=== PATIENT | male | born 1945 | race Hispanic/Latino ===

== ENCOUNTER 2020-06-01 09:28 | Inpatient (IN) | payer OTHER, MEDICARE ==
[~2020-06-01] VITALS: Ht 165.1 cm; Wt 58.2 kg
[2020-06-01 10:02] LABS: BASOPHILS % (AUTO) 0.2 % (0.0-5.0); EOSINOPHILS % (AUTO) 0.1 % (0.0-8.0); HEMATOCRIT 44.5 % (42-54); LYMPHOCYTES % (AUTO) 10.6 % (21.0-51.0); MEAN CORPUSCULAR HEMOGLOBIN 31.5 pg (27.0-33.0); MEAN CORPUSCULAR HGB CONC 33.3 g/dL (32.0-36.0); MEAN CORPUSCULAR VOLUME 94.7 fL (79-99); MONOCYTES % (AUTO) 8.6 % (3.0-13.0); NEUTROPHILS % (AUTO) 80.2 % (40.0-77.0); PLATELET COUNT (AUTO) 193 K/uL (130-400); RED CELL DISTRIBUTION WIDTH 13.2 % (11.0-15.5); WHITE BLOOD COUNT (AUTO) 15.4 K/uL (4.8-10.8)
[2020-06-01 10:12] LABS: ALBUMIN 3.9 g/dL (3.5-5.0); POTASSIUM 3.9 mmol/L (3.5-5.1); TOTAL PROTEIN, SERUM 7.8 g/dL (6.0-8.3)
[2020-06-01 10:20] LABS: APPEARANCE,URINE Clear (CLEAR); BILIRUBIN,URINE Negative (NEGATIVE); COLOR,URINE Dark Yellow (YELLOW); GLUCOSE, URINE (UA) TRACE mg/dL (NEGATIVE); KETONES,URINE Trace mg/dL (NEGATIVE); LEUKOCYTE ESTERASE ,URINE Negative (NEGATIVE); NITRATE,URINE Negative (NEGATIVE); OCCULT BLOOD,URINE Moderate (NEGATIVE); PROTEIN,URINE POS 2+ mg/dL (NEGATIVE)
[2020-06-01 10:23] LABS: PARTIAL THROMBOPLASTIN TIME 32.7 SEC (26.3-35.5); PROTHROMBIN TIME 10.8 SEC (9.6-11.6)
[2020-06-01 10:51] LABS: BACTERIA,URINE Rare /HPF (None Seen); MUCUS,URINE Moderate LPF (None Seen); SQUAMOUS EPITHELIAL CELL,UR 0-2 /HPF (0-2); WBC,URINE None Seen /HPF (0-1)
[2020-06-01] MEDS ORDERED: MORPHINE SULFATE 4 MG/1ML SYG ONE (11:49)
[2020-06-01] MEDS ORDERED: ONDANSETRON HCL 4 MG/2 ML VIAL ONE (11:49)
[2020-06-01] MEDS ORDERED: IOHEXOL-350 75 ML VIAL IV ONE (12:04)
[2020-06-01] MEDS ORDERED: ZOSYN 3.375GM+NS 50ML 50 ML IV ONE (14:03)
[2020-06-01] MEDS ORDERED: ACETAMINOPHEN 325 MG TAB PO PRN (14:45)
[2020-06-01] MEDS ORDERED: LOPERAMIDE HCL 2 MG CAP PO PRN (14:45)
[2020-06-01 16:25] VITALS: BP 149/80
[2020-06-01] MEDS: ZOSYN 3.375GM+NS 50ML 50 ML IV SCH ×2 (17:25→22:54)
[2020-06-01] MEDS: LACTULOSE 20 GM/30 ML UDCUP PO PRN (17:27)
[2020-06-01] MEDS: ACETAMINOPHEN-CODEINE 300/30MG TAB PO PRN (17:27)
--- NOTE | 2020-06-01 19:10 | NUR ---
PM Assessment Received pt awake lying in bed, routine assessment done, plan of care discuss verifying when MD will be coming to see him, calimed he was not seen in ED. I made him aware tomorrow I just don't know what time. Pt claimed came in the hospital this time as he has this abdominal pain to the mid right lateral side that pain comes & go & this time pain becomes more frequent & worst. At this time patient stated he is OK, discomfort is bearable as he was given some pain medication earlier. Pt made aware he will continue receiving Zosyn IV ABX for some infection as his WBC is slightly elevated. Pt made aware that we will apply a IVONE stocking on him for prevention of blood clot as he won't be moving around like at his house, agreed. Sheyla JACOBS requested for this issue.
[2020-06-01 19:55] VITALS: BP 124/74
[2020-06-01] MEDS: ENOXAPARIN SODIUM 40 MG/0.4 ML SYRINGE SQ SCH (20:43)
[2020-06-01] MEDS: MORPHINE SULFATE 2 MG/ML 1ML SYG IVP PRN (20:48)
[2020-06-02] VITALS (7 sets, daily range): BP systolic 113–149; BP diastolic 67–87
[2020-06-02 04:42] LABS: BASOPHILS % (AUTO) 0.1 % (0.0-5.0); EOSINOPHILS % (AUTO) 0.1 % (0.0-8.0); HEMATOCRIT 41.4 % (42-54); LYMPHOCYTES % (AUTO) 6.3 % (21.0-51.0); MEAN CORPUSCULAR HEMOGLOBIN 30.9 pg (27.0-33.0); MEAN CORPUSCULAR HGB CONC 32.4 g/dL (32.0-36.0); MEAN CORPUSCULAR VOLUME 95.4 fL (79-99); NEUTROPHILS % (AUTO) 85.1 % (40.0-77.0); PLATELET COUNT (AUTO) 184 K/uL (130-400); RED BLOOD CELL COUNT(AUTO) 4.34 MIL/uL (4.50-6.20); RED CELL DISTRIBUTION WIDTH 13.4 % (11.0-15.5); WHITE BLOOD COUNT (AUTO) 14.2 K/uL (4.8-10.8)
[2020-06-02 04:47] LABS: CREATININE 0.9 mg/dL (0.5-1.5); POTASSIUM 4.1 mmol/L (3.5-5.1)
[2020-06-02] MEDS: ZOSYN 3.375GM+NS 50ML 50 ML IV SCH ×3 (06:45→23:04)
[2020-06-02] MEDS: PANTOPRAZOLE SODIUM 40 MG TABLET.DR PO SCH (09:22)
[2020-06-02] MEDS: ENOXAPARIN SODIUM 40 MG/0.4 ML SYRINGE SQ SCH ×2 (09:23→20:51)
[2020-06-02] MEDS: ACETAMINOPHEN-CODEINE 300/30MG TAB PO PRN ×2 (10:05→16:24)
--- NOTE | 2020-06-02 16:36 | NUR ---
INITIAL SW spoke with patient. He states he lives alone. No home services or DME. Patient is independent with ADL's and drives. PCP is Dr. Madhu Monzon. Pharmacy is [facility] located on [facility] in [place]. DCP is home. Addendum: 06/02/20 at 1638 by JUAN BERMEO SS Amended: Links added.
--- NOTE | 2020-06-02 19:40 | NUR ---
PM Assessment Received pt sited on his bedside chair watching TV, routine assessment done, plan of care discuss made aware he is pending to be seen by a surgeon, Dr. Larkin. Pt verbalizes he wants to have a surgery to get over with this long issue of abdominal discomfort. Pt claimed no pain at this time, but felt his abdomen is swollen. Pt claimed he has last BM yesterday & it was normal.
[2020-06-02] MEDS: LACTULOSE 20 GM/30 ML UDCUP PO PRN (23:12)
[2020-06-03 03:43] VITALS: BP 118/71
[2020-06-03] MEDS: ZOSYN 3.375GM+NS 50ML 50 ML IV SCH ×3 (06:20→21:29)
[2020-06-03 08:00] VITALS: BP 143/84
[2020-06-03] MEDS: PANTOPRAZOLE SODIUM 40 MG TABLET.DR PO SCH (08:09)
[2020-06-03] MEDS: ENOXAPARIN SODIUM 40 MG/0.4 ML SYRINGE SQ SCH ×2 (08:09→21:30)
[2020-06-03] MEDS: PNEUMOCOCCAL VACCINE POLYVALENT 0.5 ML/VIAL [PPV] IM SCH ×2 (08:11→16:52)
--- NOTE | 2020-06-03 11:30 | NUR ---
DR. CRAIN HERE AND SPOKE WITH PT OF THE RESULTS OF THE CT SCAN DONE, PER PT. INFORMATION .DR CRAIN CAN FOLLOW WITH HIM A OUTPATIENT , IN HIS OFFICE, FOR CONT .CARE. REQUESTED THAT AFTER DISCHARGE , PT NEEDS TO SEE HIS PRIVATE DRJaya AND REQUEST MEDICAL RECORDS FROM [facility]. FOR CONT EVALUATION OF HIS CONDITIONS. WAS EXPLAIN TO PT. AND UNDERSTOOD DIRECTIONS . .
[2020-06-03 11:39] VITALS: BP 141/88
--- NOTE | 2020-06-03 14:10 | NUR ---
CALLED DAE DE LA ROSA . [facility] AND SPOKE WITH HER . REGARDING PT . WANTING TO GO HOME AFTER DR VALADEZ VISITED STATED THAT WHY IS HE STILL HERE IF HE IS NOT GETTING SURGERY DONE PER RESPOND . DAE DE LA ROSA [facility] STATED THAT SHE SPOKE WITH DR VALADEZ AND WILL DISCUSS PLAN OF CARE WITH DR PRIETO AND OTHER OPTION WILL BE DISCUSS. . RESPOND DISCUSS WITH PT. AND AGREE FOR ANTIBOTICS AND WILL WAIT . FOR CARE. OPTIONS
[2020-06-03 16:00] VITALS: BP 137/91
[2020-06-03 20:42] VITALS: BP 128/64
[2020-06-04] VITALS: BP 147/82
[2020-06-04 04:00] VITALS: BP 140/80
[2020-06-04] MEDS: ZOSYN 3.375GM+NS 50ML 50 ML IV SCH ×3 (05:58→20:52)
[2020-06-04 07:17] LABS: INR 0.96 (0.85-1.15); PARTIAL THROMBOPLASTIN TIME 36.4 SEC (26.3-35.5); PROTHROMBIN TIME 10.4 SEC (9.6-11.6)
[2020-06-04 08:08] VITALS: BP 140/85
[2020-06-04] MEDS: ENOXAPARIN SODIUM 40 MG/0.4 ML SYRINGE SQ SCH ×2 (08:11→20:52)
--- NOTE | 2020-06-04 08:11 | NUR ---
PT ON LOVENOX SQ WILL NOT GIVE DOSE TODAY PENDING A CT GUIDED DRAINAGE TODAY , I.R. PROCEDURE,
[2020-06-04] MEDS: PANTOPRAZOLE SODIUM 40 MG TABLET.DR PO SCH (08:19)
[2020-06-04] MEDS: MORPHINE SULFATE 2 MG/ML 1ML SYG IVP PRN (11:01)
--- NOTE | 2020-06-04 11:48 | NUR ---
RE: CT ABDOMINAL CYST DRAINAGE DR Cielo IBRAHIM NOTIFIED AND REVIEWED IMAGES. HE STATES "IMAGES HAVE THER APPEARANCE OF A MASS IN APPENDIX AND REQUIRES SURGICAL INTERVENTION." RECOMMENDS SURGICAL CONSULT. Sophia MASSEY RN NOTIFIED OF PROCEDURE OUTCOME. CT DRAINAGE ORDER CANCELED
--- NOTE | 2020-06-04 11:50 | NUR ---
ODALYS Monson HERE AND UPDATE OF PT.CANCELATION OF THE CT GUIDED AND NOTES FROM THE RADIOLOGIST RESPOND RESUME DIET . ASK PT TO AMBULATE MUCH HE CAN . GIVE PAIN MEDICATION ORD AND LASTULOSE FOR HIS CONSTIPATION TOFOLLOW . EXPLAIN TO PT OF PLAN OF CARE. CALL LIGHT IN REACH..
[2020-06-04 12:22] VITALS: BP 133/95
[2020-06-04] MEDS: TRAMADOL HCL 50 MG TABLET PO SCH ×3 (12:45→23:41)
--- NOTE | 2020-06-04 14:20 | NUR ---
ASK PT WHO HIS PRIVATE DRJaya WAS AND NEEDED INFORMATION OF HIS HISTORY CARE IN [facility]. . STATED THAT HIS PRIVATE DRJaya IN [place] .DR. Cielo GEE HAD THE INFORMATION . ASK WILL FOLLOWUP STATUS,
[2020-06-04] MEDS: LACTULOSE 20 GM/30 ML UDCUP PO PRN (14:27)
--- NOTE | 2020-06-04 15:00 | NUR ---
DR. CRAIN HERE AND UPDATE PT. CT SCAN RADIOLOGIST . RECOMMANDATION . CT GUIDED WAS CANCEL . DUE TO SURGEON . NEEDED FOR PT CARE. NO CHANGES .
[2020-06-04] MEDS: ACETAMINOPHEN-CODEINE 300/30MG TAB PO PRN (15:16)
[2020-06-04] MEDS: ONDANSETRON HCL 4 MG/2 ML VIAL IVP PRN (15:31)
[2020-06-04 16:00] VITALS: BP 162/95
[2020-06-04 19:00] VITALS: BP 152/72
[2020-06-05] VITALS (7 sets, daily range): BP systolic 145–168; BP diastolic 91–108
[2020-06-05] MEDS: ZOSYN 3.375GM+NS 50ML 50 ML IV SCH ×3 (06:40→20:38)
[2020-06-05] MEDS: TRAMADOL HCL 50 MG TABLET PO SCH ×4 (06:42→23:52)
[2020-06-05] MEDS: LACTULOSE 20 GM/30 ML UDCUP PO PRN (06:43)
[2020-06-05] MEDS: PANTOPRAZOLE SODIUM 40 MG TABLET.DR PO SCH (08:27)
[2020-06-05] MEDS: ENOXAPARIN SODIUM 40 MG/0.4 ML SYRINGE SQ SCH ×2 (08:28→20:36)
[2020-06-05] MEDS ORDERED: MAGNESIUM CITRATE 296 ML SOLUTION PO SCH (11:15)
[2020-06-05] MEDS: ONDANSETRON HCL 4 MG/2 ML VIAL IVP PRN (14:59)
--- NOTE | 2020-06-05 19:18 | NUR ---
FLEETS ENEMA GIVEN
[2020-06-05] MEDS: ACETAMINOPHEN-CODEINE 300/30MG TAB PO PRN (20:35)
[2020-06-05] MEDS: HYDRALAZINE HCL 20 MG/ML VIAL IV PRN (20:35)
[2020-06-06] MEDS: MORPHINE SULFATE 2 MG/ML 1ML SYG IVP PRN (02:29)
[2020-06-06 04:10] VITALS: BP 129/95
--- NOTE | 2020-06-06 04:26 | NUR ---
ROUNDS PATIENT AWAKE AND ALERT. VOICES ALL NEEDS. PATIENT BEING MEDICATED AROUND THE CLOCK FOR ABD AND LATERAL PAIN. MEDICATED PER MARS PRN. RESP EVEN AND UNLABORED. NO SOB NOTED. O2 ON AT 2LPM. VITALS STABLE. AFEBRILE. VOIDING WITHOUT DIFFICULTY. REPOSITIONED FOR COMFORT. HOB ELEVATED. CALL LIGHT WITHIN REACH. WILL CONTINUE TO BE OBSERVED. Addendum: 06/06/20 at 9788 by DAVID TORRES RN RN Amended: Links added.
[2020-06-06] MEDS: ZOSYN 3.375GM+NS 50ML 50 ML IV SCH ×3 (05:18→22:24)
[2020-06-06] MEDS: TRAMADOL HCL 50 MG TABLET PO SCH ×3 (06:18→18:38)
[2020-06-06 08:00] VITALS: BP 130/90
[2020-06-06] MEDS: PANTOPRAZOLE SODIUM 40 MG TABLET.DR PO SCH (09:00)
[2020-06-06] MEDS: LACTULOSE 20 GM/30 ML UDCUP PO PRN (09:00)
[2020-06-06] MEDS: ENOXAPARIN SODIUM 40 MG/0.4 ML SYRINGE SQ SCH ×2 (09:01→20:53)
--- NOTE | 2020-06-06 09:54 | NUR ---
BENCHMARK PAGED PATIENT C/O RIGHT SIDED "CHEST PAIN". PAGED BENCHMARK TO REPORT SYMPTOMS.
[2020-06-06 11:00] VITALS: BP 154/90
[2020-06-06] MEDS: DEXTROSE 5%-LACTATED RINGERS 1,000 ML IV SCH (14:10)
[2020-06-06 15:45] VITALS: BP 138/89
[2020-06-06 19:52] VITALS: BP 146/93
[2020-06-06 23:57] VITALS: BP 143/93
[2020-06-07] MEDS: TRAMADOL HCL 50 MG TABLET PO SCH ×5 (00:18→23:06)
[2020-06-07] MEDS: DEXTROSE 5%-LACTATED RINGERS 1,000 ML IV SCH ×3 (00:18→20:14)
[2020-06-07 03:51] VITALS: BP 156/94
[2020-06-07] MEDS: ZOSYN 3.375GM+NS 50ML 50 ML IV SCH ×3 (06:40→23:05)
[2020-06-07 06:41] LABS: HEMATOCRIT 40.2 % (42-54); MEAN CORPUSCULAR HGB CONC 33.6 g/dL (32.0-36.0); MEAN CORPUSCULAR VOLUME 92.2 fL (79-99); RED BLOOD CELL COUNT(AUTO) 4.36 MIL/uL (4.50-6.20); RED CELL DISTRIBUTION WIDTH 13.2 % (11.0-15.5); WHITE BLOOD COUNT (AUTO) 12.5 K/uL (4.8-10.8)
[2020-06-07 06:53] LABS: CREATININE 0.9 mg/dL (0.5-1.5)
[2020-06-07 08:02] VITALS: BP 158/97
[2020-06-07] MEDS: PANTOPRAZOLE SODIUM 40 MG TABLET.DR PO SCH (09:44)
[2020-06-07] MEDS: ENOXAPARIN SODIUM 40 MG/0.4 ML SYRINGE SQ SCH ×2 (09:45→20:07)
[2020-06-07 11:10] VITALS: BP 141/96
[2020-06-07 16:40] VITALS: BP 160/93
[2020-06-07] MEDS ORDERED: LIDOCAINE HCL-MPF 1% 2ML VIAL IV PRN (18:15)
[2020-06-07] MEDS ORDERED: POTASSIUM CHLORIDE 20MEQ/100ML 100 ML IV PRN ×2 (18:15)
[2020-06-07] MEDS: METOCLOPRAMIDE 10 MG/2 ML VIAL IVP SCH (18:47)
[2020-06-07 20:00] VITALS: BP 152/82
--- NOTE | 2020-06-07 20:08 | NUR ---
Lovenox held patient going to surgery tomorrow
[2020-06-07] MEDS: LIDOCAINE HCL-MPF 1% 2ML VIAL IV PRN (21:03)
[2020-06-07] MEDS: MORPHINE SULFATE 2 MG/ML 1ML SYG IVP PRN (21:18)
[2020-06-08] VITALS (25 sets, daily range): BP systolic 109–170; BP diastolic 64–100
[2020-06-08 04:20] LABS: BASOPHILS % (AUTO) 0.3 % (0.0-5.0); EOSINOPHILS % (AUTO) 1.4 % (0.0-8.0); HEMATOCRIT 39.9 % (42-54); LYMPHOCYTES % (AUTO) 7.2 % (21.0-51.0); MEAN CORPUSCULAR HEMOGLOBIN 30.8 pg (27.0-33.0); MEAN CORPUSCULAR HGB CONC 32.8 g/dL (32.0-36.0); MEAN CORPUSCULAR VOLUME 93.7 fL (79-99); MONOCYTES % (AUTO) 8.8 % (3.0-13.0); NEUTROPHILS % (AUTO) 81.7 % (40.0-77.0); PLATELET COUNT (AUTO) 286 K/uL (130-400); RED BLOOD CELL COUNT(AUTO) 4.26 MIL/uL (4.50-6.20); RED CELL DISTRIBUTION WIDTH 13.2 % (11.0-15.5); WHITE BLOOD COUNT (AUTO) 11.7 K/uL (4.8-10.8)
[2020-06-08 04:47] LABS: ALBUMIN 2.7 g/dL (3.5-5.0); BILIRUBIN,TOTAL 0.6 mg/dL (0.2-1.0); CREATININE 0.9 mg/dL (0.5-1.5); POTASSIUM 3.1 mmol/L (3.5-5.1); TOTAL PROTEIN, SERUM 6.7 g/dL (6.0-8.3)
[2020-06-08] MEDS: HYDRALAZINE HCL 20 MG/ML VIAL IV PRN (05:04)
[2020-06-08] MEDS: ZOSYN 3.375GM+NS 50ML 50 ML IV SCH ×3 (05:07→21:47)
[2020-06-08] MEDS: TRAMADOL HCL 50 MG TABLET PO SCH ×4 (05:07→18:47)
[2020-06-08] MEDS: DEXTROSE 5%-LACTATED RINGERS 1,000 ML IV SCH ×2 (05:12→18:46)
[2020-06-08] MEDS: METOCLOPRAMIDE 10 MG/2 ML VIAL IVP SCH ×3 (06:46→18:46)
[2020-06-08] MEDS: MORPHINE SULFATE 2 MG/ML 1ML SYG IVP PRN (07:31)
[2020-06-08] MEDS: LIDOCAINE HCL-MPF 1% 2ML VIAL IJ PRN ×2 (07:31→18:49)
[2020-06-08] MEDS: POTASSIUM CHLORIDE 20MEQ/100ML 100 ML IV PRN ×2 (07:31→18:49)
[2020-06-08] MEDS: ENOXAPARIN SODIUM 40 MG/0.4 ML SYRINGE SQ SCH ×2 (09:00→21:46)
[2020-06-08] MEDS: PANTOPRAZOLE SODIUM 40 MG TABLET.DR PO SCH (09:00)
[2020-06-08] MEDS ORDERED: LIDOCAINE PF 2% 5ML ABBOJECT ONE (12:34)
[2020-06-08] MEDS ORDERED: MIDAZOLAM HCL 1 MG/ML 2ML VIAL ONE (12:35)
[2020-06-08] MEDS ORDERED: ONDANSETRON HCL 4 MG/2 ML VIAL ONE (12:35)
[2020-06-08] MEDS ORDERED: PROPOFOL 10 MG/ML 20ML VIAL IV ONE (12:35)
[2020-06-08] MEDS ORDERED: FENTANYL CITRATE PF 50 MCG/1 ML 2ML VIAL ONE (12:35)
[2020-06-08] MEDS ORDERED: DEXAMETHASONE SOD PHOSPHATE 10MG/ML 1ML VIAL ONE (12:35)
[2020-06-08] MEDS ORDERED: ROCURONIUM 10MG/1ML SYR 10 MG/ML ML ONE (12:35)
[2020-06-08 13:37] LABS: ABG BASE EXCESS 0.7 mmol/L (-2.0-3.0); ABG HCO3 25.3 mmol/L (21.0-28.0); ABG OXYGEN SATURATION 97.9 % (95.0-99.0); ABG PCO2 41 mmHg (35-48)
[2020-06-08] MEDS ORDERED: NEOSTIGMINE 5MG/5ML SYR IV ONE (13:42)
[2020-06-08] MEDS ORDERED: GLYCOPYRROLATE 1 MG/5 ML SYRINGE ONE (13:42)
[2020-06-08] MEDS ORDERED: NITROGLYCERIN 50 MG/D5% WATER 0 BOT ONE (14:08)
[2020-06-08] MEDS ORDERED: MEPERIDINE-PF 25 MG/ML SYG ONE ×2 (14:15→14:46)
[2020-06-08] MEDS ORDERED: MORPHINE SULFATE 4 MG/1ML SYG ONE ×2 (14:25→19:05)
--- NOTE | 2020-06-08 15:40 | NUR ---
PT RECEIVED POST EXP LAP. VITALS STABLE. PT IN SOME PAIN, PAIN MEDS ADMINISTERED PRIOR TO COMING BACK. NOTED NG TUBE TO RIGHT NARE ON LOW INT SUCTION, BROWN DRAINAGE NOTED. PT TOLERATING WELL. ABD DRESSING CLEAN AND DRY. WILL CONTINUE TO MONITOR.
[2020-06-08] MEDS ORDERED: KETOROLAC TROMETHAMINE 30MG/ML IV PRN ×2 (19:15→21:45)
[2020-06-08] MEDS: FAMOTIDINE/PF 20 MG/2 ML VIAL IV SCH (21:47)
[2020-06-09 00:07] VITALS: BP 136/85
[2020-06-09] MEDS: DEXTROSE 5%-LACTATED RINGERS 1,000 ML IV SCH ×3 (01:45→21:45)
[2020-06-09] MEDS: KETOROLAC TROMETHAMINE 30MG/ML IV SCH ×4 (01:53→21:20)
[2020-06-09 03:56] VITALS: BP 113/70
[2020-06-09 04:29] LABS: BASOPHILS % (AUTO) 0.3 % (0.0-5.0); EOSINOPHILS % (AUTO) 0.3 % (0.0-8.0); HEMATOCRIT 37.6 % (42-54); LYMPHOCYTES % (AUTO) 5.9 % (21.0-51.0); MEAN CORPUSCULAR HEMOGLOBIN 30.6 pg (27.0-33.0); MEAN CORPUSCULAR HGB CONC 32.7 g/dL (32.0-36.0); MEAN CORPUSCULAR VOLUME 93.5 fL (79-99); MONOCYTES % (AUTO) 6.5 % (3.0-13.0); NEUTROPHILS % (AUTO) 86.6 % (40.0-77.0); PLATELET COUNT (AUTO) 297 K/uL (130-400); RED BLOOD CELL COUNT(AUTO) 4.02 MIL/uL (4.50-6.20); RED CELL DISTRIBUTION WIDTH 13.4 % (11.0-15.5); WHITE BLOOD COUNT (AUTO) 11.5 K/uL (4.8-10.8)
[2020-06-09 04:40] LABS: ABG BASE EXCESS 0.9 mmol/L (-2.0-3.0); ABG HCO3 24.8 mmol/L (21.0-28.0); ABG OXYGEN SATURATION 93.5 % (95.0-99.0); ABG PCO2 37 mmHg (35-48)
[2020-06-09] MEDS: METOCLOPRAMIDE 10 MG/2 ML VIAL IVP SCH ×3 (05:52→16:20)
[2020-06-09] MEDS: ZOSYN 3.375GM+NS 50ML 50 ML IV SCH ×3 (05:52→23:57)
[2020-06-09 06:26] LABS: ALBUMIN 1.8 g/dL (3.5-5.0); BILIRUBIN,TOTAL 0.6 mg/dL (0.2-1.0); CREATININE 0.9 mg/dL (0.5-1.5); MAGNESIUM 2.7 mg/dL (1.80-2.40); PHOSPHORUS 2.4 mg/dL (2.5-4.9)
[2020-06-09 08:21] VITALS: BP 136/72
[2020-06-09] MEDS: PANTOPRAZOLE 40 MG/VIAL IVP SCH (09:28)
[2020-06-09] MEDS: FAMOTIDINE/PF 20 MG/2 ML VIAL IV SCH ×2 (09:28→21:20)
[2020-06-09] MEDS: ENOXAPARIN SODIUM 40 MG/0.4 ML SYRINGE SQ SCH ×2 (09:30→21:28)
[2020-06-09 11:41] VITALS: BP 147/68
[2020-06-09] MEDS ORDERED: POTASSIUM PHOS 15 mMOL+NS250ML 250 ML IV PRN (13:00)
[2020-06-09 16:36] VITALS: BP 137/74
[2020-06-09 20:00] VITALS: BP 150/70
[2020-06-09] MEDS ORDERED: KETOROLAC TROMETHAMINE 30MG/ML ONE (21:13)
[2020-06-10] VITALS (7 sets, daily range): BP systolic 132–169; BP diastolic 76–88
[2020-06-10] MEDS: KETOROLAC TROMETHAMINE 30MG/ML IV SCH ×5 (03:47→23:03)
[2020-06-10 05:24] LABS: HEMATOCRIT 33.4 % (42-54); MEAN CORPUSCULAR HEMOGLOBIN 30.5 pg (27.0-33.0); MEAN CORPUSCULAR HGB CONC 32.3 g/dL (32.0-36.0); MEAN CORPUSCULAR VOLUME 94.4 fL (79-99); RED BLOOD CELL COUNT(AUTO) 3.54 MIL/uL (4.50-6.20); RED CELL DISTRIBUTION WIDTH 13.6 % (11.0-15.5); WHITE BLOOD COUNT (AUTO) 5.7 K/uL (4.8-10.8)
[2020-06-10] MEDS: ZOSYN 3.375GM+NS 50ML 50 ML IV SCH ×3 (05:37→22:52)
[2020-06-10] MEDS: METOCLOPRAMIDE 10 MG/2 ML VIAL IVP SCH ×3 (05:37→17:41)
[2020-06-10 06:00] LABS: CREATININE 0.8 mg/dL (0.5-1.5); MAGNESIUM 2.4 mg/dL (1.80-2.40); PHOSPHORUS 1.9 mg/dL (2.5-4.9); POTASSIUM 3.5 mmol/L (3.5-5.1)
[2020-06-10] MEDS: FAMOTIDINE/PF 20 MG/2 ML VIAL IV SCH ×2 (08:51→21:28)
[2020-06-10] MEDS: ENOXAPARIN SODIUM 40 MG/0.4 ML SYRINGE SQ SCH ×2 (08:52→21:28)
[2020-06-10] MEDS: PANTOPRAZOLE 40 MG/VIAL IVP SCH (10:14)
[2020-06-10] MEDS: MORPHINE SULFATE 4 MG/1ML SYG IV PRN ×2 (10:15→18:14)
--- NOTE | 2020-06-10 10:20 | NUR ---
FEVER pt in chair ,states he feels warm ,checked temp 101.7 oral HR = 119 ST medicated with Tylenol 650mg PO NGT Clamped while in chair
--- NOTE | 2020-06-10 10:35 | NUR ---
Dr Larkin here aware of temp 101.7 obtain urine culture
[2020-06-10] MEDS: DEXTROSE 5%-LACTATED RINGERS 1,000 ML IV SCH ×2 (18:00→18:06)
--- NOTE | 2020-06-10 19:00 | NUR ---
FAMILY MEMBER spoke with daughter on the phone ,explained plan of care for pt voices understanding
--- NOTE | 2020-06-10 19:10 | NUR ---
ARCOS CATH DCd arcos cath sent UA with culture to lab
[2020-06-10] MEDS: LIDOCAINE HCL-MPF 1% 2ML VIAL IJ PRN (21:28)
[2020-06-10] MEDS: POTASSIUM CHLORIDE 20MEQ/100ML 100 ML IV PRN (21:29)
[2020-06-10] MEDS ORDERED: KETOROLAC TROMETHAMINE 30MG/ML ONE (23:00)
--- NOTE | 2020-06-10 23:46 | NUR ---
VOID Pt sitting up on a cardiac chair this time,states he already voided tonight post arcos cath removed.
--- NOTE | 2020-06-11 01:00 | NUR ---
ACTIVITY Pt was sitting up on chair since 2099,wants to go back to bed.NGT to low intermitent wall suction,draining greenish output.ABd dressing dry and intact,abd binder in place.Pt voids per urinal.
[2020-06-11 03:33] VITALS: BP 166/82
[2020-06-11] MEDS: DEXTROSE 5%-LACTATED RINGERS 1,000 ML IV SCH ×2 (03:50→13:45)
[2020-06-11] MEDS: HYDRALAZINE HCL 20 MG/ML VIAL IV PRN (03:51)
--- NOTE | 2020-06-11 03:51 | NUR ---
HYDRALAZINE Hydralazine given for bp 166/82.
--- NOTE | 2020-06-11 04:25 | NUR ---
MED EFFECT Bp rechecked 138/66.
[2020-06-11 04:26] VITALS: BP 138/66
[2020-06-11 04:33] LABS: BASOPHILS % (AUTO) 0.2 % (0.0-5.0); EOSINOPHILS % (AUTO) 0.2 % (0.0-8.0); HEMATOCRIT 36.5 % (42-54); LYMPHOCYTES % (AUTO) 8.5 % (21.0-51.0); MEAN CORPUSCULAR HEMOGLOBIN 30.6 pg (27.0-33.0); MEAN CORPUSCULAR HGB CONC 32.3 g/dL (32.0-36.0); MEAN CORPUSCULAR VOLUME 94.8 fL (79-99); MONOCYTES % (AUTO) 8.6 % (3.0-13.0); PLATELET COUNT (AUTO) 295 K/uL (130-400); RED BLOOD CELL COUNT(AUTO) 3.85 MIL/uL (4.50-6.20); RED CELL DISTRIBUTION WIDTH 13.6 % (11.0-15.5); WHITE BLOOD COUNT (AUTO) 8.5 K/uL (4.8-10.8)
[2020-06-11 04:46] LABS: CREATININE 0.8 mg/dL (0.5-1.5); MAGNESIUM 2.3 mg/dL (1.80-2.40); PHOSPHORUS 1.9 mg/dL (2.5-4.9); POTASSIUM 3.6 mmol/L (3.5-5.1)
[2020-06-11] MEDS: ZOSYN 3.375GM+NS 50ML 50 ML IV SCH (05:05)
[2020-06-11] MEDS: METOCLOPRAMIDE 10 MG/2 ML VIAL IVP SCH ×3 (05:06→16:09)
[2020-06-11 07:52] VITALS: BP 146/78
--- NOTE | 2020-06-11 08:13 | NUR ---
PAIN pt c/o pain upper back area rates a 5 pt sitting up in recliner requesting to ambulate
[2020-06-11] MEDS: FAMOTIDINE/PF 20 MG/2 ML VIAL IV SCH ×2 (08:51→20:17)
[2020-06-11] MEDS: ENOXAPARIN SODIUM 40 MG/0.4 ML SYRINGE SQ SCH ×2 (08:52→20:18)
[2020-06-11] MEDS: MORPHINE SULFATE 4 MG/1ML SYG IV PRN ×2 (08:53→22:45)
--- NOTE | 2020-06-11 09:06 | NUR ---
IV site right forearm swollen dcd and restarted left wrist 18 gauge x 1 attempt NGT DCd per Dr Martinez orders
[2020-06-11] MEDS: PANTOPRAZOLE SODIUM 40 MG TABLET.DR PO SCH (09:23)
[2020-06-11 11:15] VITALS: BP 132/79
[2020-06-11 16:00] VITALS: BP 142/83
[2020-06-11] MEDS: ACETAMINOPHEN-CODEINE 300/30MG TAB PO PRN (16:30)
--- NOTE | 2020-06-11 16:43 | NUR ---
Nutrition Note: RD screen d/t LOS x 10 days. Pt admitted with right abdominal mass s/p right hemicolectomy and severe PCM with electrolyte abnormalities. Pt NGT d/c and diet to advance to CLD this evening. Recommend: Advance diet to CLD. Add ensure TID with meals Add Audi 1 pckt at lunch and dinner w/ 8oz of water for wound healing Multivitamin Will monitor diet advancement. Addendum: 06/11/20 at [address] Amended: Links added.
[2020-06-11] MEDS: POTASSIUM CHLORIDE 20MEQ/100ML 100 ML IV PRN ×2 (17:00→18:19)
--- NOTE | 2020-06-11 18:30 | NUR ---
BANDADES X4 CHANGED JOSUÉ IN PLACE
[2020-06-11 20:00] VITALS: BP 161/87
--- NOTE | 2020-06-11 23:01 | NUR ---
COMFORT Pt had a bedbath,medicated with Morphine for c/o abdominal pain.
[2020-06-12] VITALS (9 sets, daily range): BP systolic 145–169; BP diastolic 68–94
[2020-06-12] MEDS: DEXTROSE 5%-LACTATED RINGERS 1,000 ML IV SCH ×3 (02:19→22:40)
[2020-06-12 05:35] LABS: BASOPHILS % (AUTO) 0.2 % (0.0-5.0); EOSINOPHILS % (AUTO) 0.2 % (0.0-8.0); HEMATOCRIT 34.6 % (42-54); LYMPHOCYTES % (AUTO) 5.9 % (21.0-51.0); MEAN CORPUSCULAR HEMOGLOBIN 30.4 pg (27.0-33.0); MEAN CORPUSCULAR HGB CONC 32.1 g/dL (32.0-36.0); MEAN CORPUSCULAR VOLUME 94.8 fL (79-99); MONOCYTES % (AUTO) 7.9 % (3.0-13.0); PLATELET COUNT (AUTO) 278 K/uL (130-400); RED BLOOD CELL COUNT(AUTO) 3.65 MIL/uL (4.50-6.20); RED CELL DISTRIBUTION WIDTH 13.6 % (11.0-15.5); WHITE BLOOD COUNT (AUTO) 12.6 K/uL (4.8-10.8)
[2020-06-12] MEDS: METOCLOPRAMIDE 10 MG/2 ML VIAL IVP SCH ×3 (05:40→17:49)
[2020-06-12] MEDS: MORPHINE SULFATE 4 MG/1ML SYG IV PRN ×2 (05:46→12:50)
[2020-06-12 05:48] LABS: ALBUMIN 1.7 g/dL (3.5-5.0); BILIRUBIN,TOTAL 0.6 mg/dL (0.2-1.0); CREATININE 0.7 mg/dL (0.5-1.5); POTASSIUM 3.5 mmol/L (3.5-5.1); TOTAL PROTEIN, SERUM 5.5 g/dL (6.0-8.3)
[2020-06-12] MEDS: POTASSIUM CHLORIDE 20MEQ/100ML 100 ML IV PRN (06:23)
[2020-06-12] MEDS: LIDOCAINE HCL-MPF 1% 2ML VIAL IJ PRN (06:24)
[2020-06-12] MEDS: PANTOPRAZOLE SODIUM 40 MG TABLET.DR PO SCH (06:36)
[2020-06-12] MEDS: FAMOTIDINE/PF 20 MG/2 ML VIAL IV SCH ×2 (10:30→22:37)
[2020-06-12] MEDS: ENOXAPARIN SODIUM 40 MG/0.4 ML SYRINGE SQ SCH ×2 (10:36→22:37)
--- NOTE | 2020-06-12 13:48 | NUR ---
RD UPDATE Pt with Clear Liquid diet order in place. WBC 12.6, Alb 1.7. Recommend to add Ensure Clear TID Recommend MVI Recommend 60mL ProMod QD RD to continue to monitor. Please notify as additional nutrition concerns arise. Thank you.
[2020-06-12] MEDS: HYDRALAZINE HCL 20 MG/ML VIAL IV PRN ×2 (14:50→23:00)
[2020-06-12] MEDS: ACETAMINOPHEN-CODEINE 300/30MG TAB PO PRN (17:50)
[2020-06-13] MEDS: ACETAMINOPHEN-CODEINE 300/30MG TAB PO PRN ×4 (00:08→23:59)
[2020-06-13 03:15] VITALS: BP 167/84
[2020-06-13 04:17] LABS: HEMATOCRIT 34.4 % (42-54); MEAN CORPUSCULAR HEMOGLOBIN 29.7 pg (27.0-33.0); MEAN CORPUSCULAR HGB CONC 31.7 g/dL (32.0-36.0); MEAN CORPUSCULAR VOLUME 93.7 fL (79-99); RED BLOOD CELL COUNT(AUTO) 3.67 MIL/uL (4.50-6.20); RED CELL DISTRIBUTION WIDTH 13.7 % (11.0-15.5); WHITE BLOOD COUNT (AUTO) 14.8 K/uL (4.8-10.8)
[2020-06-13 04:29] LABS: CREATININE 0.6 mg/dL (0.5-1.5); POTASSIUM 3.2 mmol/L (3.5-5.1)
[2020-06-13] MEDS: HYDRALAZINE HCL 20 MG/ML VIAL IV PRN ×3 (04:46→23:58)
[2020-06-13] MEDS: POTASSIUM CHLORIDE 20MEQ/100ML 100 ML IV PRN ×2 (06:12→15:59)
[2020-06-13] MEDS: DEXTROSE 5%-LACTATED RINGERS 1,000 ML IV SCH ×2 (06:12→19:51)
[2020-06-13] MEDS: METOCLOPRAMIDE 10 MG/2 ML VIAL IVP SCH ×3 (06:13→17:42)
[2020-06-13 08:00] VITALS: BP 138/70
[2020-06-13] MEDS: FAMOTIDINE/PF 20 MG/2 ML VIAL IV SCH ×2 (08:59→20:27)
[2020-06-13] MEDS: ENOXAPARIN SODIUM 40 MG/0.4 ML SYRINGE SQ SCH ×2 (09:01→20:28)
[2020-06-13 12:00] VITALS: BP 172/83
[2020-06-13] MEDS: LIDOCAINE HCL-MPF 1% 2ML VIAL IJ PRN (15:58)
[2020-06-13 16:00] VITALS: BP 159/77
[2020-06-13] MEDS: ONDANSETRON HCL 4 MG/2 ML VIAL IVP PRN ×2 (17:59→22:50)
[2020-06-13 19:10] VITALS: BP 154/86
[2020-06-13] MEDS: POTASSIUM CHLORIDE 10% ELIXIR 20 MEQ/15 ML UDCUP PO PRN (22:50)
[2020-06-13 23:16] VITALS: BP 169/87
[2020-06-14] MEDS: POTASSIUM CHLORIDE 10% ELIXIR 20 MEQ/15 ML UDCUP PO PRN ×3 (01:18→05:39)
[2020-06-14] MEDS: MORPHINE SULFATE 4 MG/1ML SYG IV PRN ×2 (03:16→10:43)
[2020-06-14] MEDS: DEXTROSE 5%-LACTATED RINGERS 1,000 ML IV SCH ×2 (03:16→12:56)
[2020-06-14 03:37] VITALS: BP 164/88
[2020-06-14 04:23] VITALS: BP 151/86
[2020-06-14 05:12] LABS: HEMATOCRIT 32.9 % (42-54); MEAN CORPUSCULAR HEMOGLOBIN 30.1 pg (27.0-33.0); MEAN CORPUSCULAR HGB CONC 32.2 g/dL (32.0-36.0); MEAN CORPUSCULAR VOLUME 93.5 fL (79-99); RED BLOOD CELL COUNT(AUTO) 3.52 MIL/uL (4.50-6.20); WHITE BLOOD COUNT (AUTO) 14.1 K/uL (4.8-10.8)
[2020-06-14 05:31] LABS: CREATININE 0.7 mg/dL (0.5-1.5); POTASSIUM 3.7 mmol/L (3.5-5.1)
[2020-06-14] MEDS: METOCLOPRAMIDE 10 MG/2 ML VIAL IVP SCH ×3 (05:39→16:55)
[2020-06-14 08:00] VITALS: BP 170/89
[2020-06-14] MEDS: FAMOTIDINE/PF 20 MG/2 ML VIAL IV SCH ×2 (08:03→21:40)
[2020-06-14] MEDS: HYDRALAZINE HCL 20 MG/ML VIAL IV PRN (08:04)
--- NOTE | 2020-06-14 08:21 | NUR ---
DARYL INGRAM SPOKE TO DARYL THAT PATIENT C/0 OF PAIN TO ABDOMINAL AREA AND RIGHT FLANK AREA 0-10 ( 6) ON PAIN SCALE. PER DARYL WILL ORDER A KUB.
--- NOTE | 2020-06-14 10:52 | NUR ---
ABDOMINAL PAIN PT C/O OF AMBDOMINAL PAIN AND PT TO RIGHT FLANK AREA. PT GIVEN MORPHINE 4MG AND ICE PACK, PAIN IS 6 OUT 10.
[2020-06-14 11:00] VITALS: BP_SYST 131; BP_SYST 161; BP_DIAS 73; BP_DIAS 86
[2020-06-14] MEDS: ENOXAPARIN SODIUM 40 MG/0.4 ML SYRINGE SQ SCH ×2 (11:47→21:41)
[2020-06-14 16:02] VITALS: BP 153/80
[2020-06-14] MEDS: ACETAMINOPHEN-CODEINE 300/30MG TAB PO PRN (18:06)
--- NOTE | 2020-06-14 19:30 | NUR ---
PM Assessment Received pt lying in bed with D5LR at 100cc/hr infusing well, routine assessment done, plan of care discuss,pt made aware that he is due for another KUB in AM, abdomen noted distended but per pt stated had a goon BM earlier today with (+) flatus. Pt's abdominal binder fix, incision with staple sutures dry & intact. Pt encourage to moved around,ambulate, agreed stated he will do it later as earlier today has not gotten out of bed at all. Pt reminded on clear liquid diet only for now which pt claimed has been tolerating it well. Pt also encourage to keep doing his IS while awake to prevent issues with his lungs, 5x at 750 only.
[2020-06-14 21:03] VITALS: BP 145/77
[2020-06-15] VITALS (8 sets, daily range): BP systolic 127–167; BP diastolic 68–87
[2020-06-15] MEDS: ACETAMINOPHEN-CODEINE 300/30MG TAB PO PRN ×3 (01:51→15:18)
[2020-06-15] MEDS: DEXTROSE 5%-LACTATED RINGERS 1,000 ML IV SCH ×3 (03:07→18:06)
[2020-06-15 03:55] LABS: BASOPHILS % (AUTO) 0.5 % (0.0-5.0); EOSINOPHILS % (AUTO) 0.1 % (0.0-8.0); HEMATOCRIT 29.4 % (42-54); LYMPHOCYTES % (AUTO) 3.7 % (21.0-51.0); MEAN CORPUSCULAR HEMOGLOBIN 30.1 pg (27.0-33.0); MEAN CORPUSCULAR HGB CONC 32.7 g/dL (32.0-36.0); MEAN CORPUSCULAR VOLUME 92.2 fL (79-99); MONOCYTES % (AUTO) 3.3 % (3.0-13.0); NEUTROPHILS % (AUTO) 91.9 % (40.0-77.0); PLATELET COUNT (AUTO) 247 K/uL (130-400); RED BLOOD CELL COUNT(AUTO) 3.19 MIL/uL (4.50-6.20); RED CELL DISTRIBUTION WIDTH 14.1 % (11.0-15.5); WHITE BLOOD COUNT (AUTO) 13.3 K/uL (4.8-10.8)
[2020-06-15 04:06] LABS: ALBUMIN 1.3 g/dL (3.5-5.0); BILIRUBIN,TOTAL 0.6 mg/dL (0.2-1.0); CREATININE 0.7 mg/dL (0.5-1.5); POTASSIUM 3.4 mmol/L (3.5-5.1)
[2020-06-15] MEDS: POTASSIUM CHLORIDE 20 MEQ ERTAB PO PRN (06:31)
[2020-06-15] MEDS: METOCLOPRAMIDE 10 MG/2 ML VIAL IVP SCH ×3 (06:32→16:19)
[2020-06-15] MEDS: FAMOTIDINE/PF 20 MG/2 ML VIAL IV SCH ×2 (08:25→19:45)
[2020-06-15] MEDS: POTASSIUM CHLORIDE 20MEQ/100ML 100 ML IV PRN (08:26)
[2020-06-15] MEDS: LIDOCAINE HCL-MPF 1% 2ML VIAL IJ PRN (08:26)
[2020-06-15] MEDS: ENOXAPARIN SODIUM 40 MG/0.4 ML SYRINGE SQ SCH ×2 (08:26→19:45)
[2020-06-15] MEDS ORDERED: METHYLNALTREXONE BROMIDE 12 MG/0.6 ML VIAL SQ SCH (16:00)
--- NOTE | 2020-06-15 16:29 | NUR ---
DARYL INGRAM SPOKE WITH DARYL INGRAM AND READ THE RESULT OF CT SCAN OF ABD/PLEVIS, ORDER IS TO KEEP PT NPO AND HE WILL COME AND LOOK AT HIM TOMORROW.
[2020-06-15] MEDS: HYDRALAZINE HCL 20 MG/ML VIAL IV PRN (20:24)
--- NOTE | 2020-06-15 21:24 | NUR ---
spoke with doctor jonathan. let him know ct scan results. he will see patient in the am
[2020-06-15] MEDS: KETOROLAC TROMETHAMINE 15MG/ML IM PRN (21:35)
[2020-06-16] VITALS (7 sets, daily range): BP systolic 141–168; BP diastolic 69–87
[2020-06-16] MEDS: KETOROLAC TROMETHAMINE 15MG/ML IM PRN (03:28)
[2020-06-16] MEDS: DEXTROSE 5%-LACTATED RINGERS 1,000 ML IV SCH ×2 (03:36→13:45)
[2020-06-16 03:56] LABS: BASOPHILS % (AUTO) 0.6 % (0.0-5.0); EOSINOPHILS % (AUTO) 0.2 % (0.0-8.0); HEMATOCRIT 30.5 % (42-54); LYMPHOCYTES % (AUTO) 3.1 % (21.0-51.0); MEAN CORPUSCULAR HEMOGLOBIN 29.8 pg (27.0-33.0); MEAN CORPUSCULAR HGB CONC 32.5 g/dL (32.0-36.0); MEAN CORPUSCULAR VOLUME 91.9 fL (79-99); MONOCYTES % (AUTO) 3.2 % (3.0-13.0); NEUTROPHILS % (AUTO) 92.3 % (40.0-77.0); PLATELET COUNT (AUTO) 214 K/uL (130-400); RED BLOOD CELL COUNT(AUTO) 3.32 MIL/uL (4.50-6.20); RED CELL DISTRIBUTION WIDTH 14.3 % (11.0-15.5); WHITE BLOOD COUNT (AUTO) 14.1 K/uL (4.8-10.8)
[2020-06-16 04:13] LABS: CREATININE 0.6 mg/dL (0.5-1.5); POTASSIUM 3.5 mmol/L (3.5-5.1)
[2020-06-16] MEDS: METOCLOPRAMIDE 10 MG/2 ML VIAL IVP SCH ×3 (05:02→16:53)
--- NOTE | 2020-06-16 08:00 | NUR ---
PT UP IN CHAIR, AND HAD A LARGE YELLOW STOOL. ABD INCISION REVIEW. TO CHECK INCISIONAL SITE, CLEANSE WITH THE SALINE ,AND ABD BINDER WILL BE CHANGE DUE TO DIRTY , OUTSIDE THE BINDER, AGREEABLE TO CARE. CALL LIGHT IN REACH.
[2020-06-16] MEDS: ENOXAPARIN SODIUM 40 MG/0.4 ML SYRINGE SQ SCH ×2 (08:38→20:37)
[2020-06-16] MEDS: FAMOTIDINE/PF 20 MG/2 ML VIAL IV SCH ×2 (08:38→20:37)
--- NOTE | 2020-06-16 11:30 | NUR ---
DR. CRAIN HERE, AND UPDATE OF PT. CARE, PT IS SITTING UP IN CHAIR , HAVING LARGE LOOSE YELLOW STOOLS . DR CRAIN PLEASE . CHANGE OF DIET TO A GI SOFT. RECOMMENDATION .
[2020-06-16] MEDS: KETOROLAC TROMETHAMINE 15MG/ML IV PRN ×2 (12:17→15:16)
[2020-06-16] MEDS ORDERED: METHYLNALTREXONE BROMIDE 12 MG/0.6 ML VIAL SQ SCH (14:30)
[2020-06-16] MEDS: POTASSIUM CHLORIDE 10% ELIXIR 20 MEQ/15 ML UDCUP PO PRN ×2 (20:46→23:23)
[2020-06-16] MEDS: TRAMADOL /APAP 37.5MG/325MG TAB PO PRN (21:22)
--- NOTE | 2020-06-16 21:22 | NUR ---
PAIN Pt requesting pain med,medicated with Tramadol.
--- NOTE | 2020-06-16 23:56 | NUR ---
ACTIVITY Pt sitting at the edge of the bed,encouraged to ambulate and do IS.Pt appears sad,denies pain this time.
[2020-06-17] MEDS: DEXTROSE 5%-LACTATED RINGERS 1,000 ML IV SCH
[2020-06-17] MEDS: KETOROLAC TROMETHAMINE 15MG/ML IV PRN ×3 (03:13→20:33)
[2020-06-17 04:00] VITALS: BP 170/90
[2020-06-17] MEDS: METOCLOPRAMIDE 10 MG/2 ML VIAL IVP SCH ×3 (04:55→16:26)
--- NOTE | 2020-06-17 04:56 | NUR ---
REGLAN Reglan not given,pt had 4 bowel movements.
--- NOTE | 2020-06-17 06:11 | NUR ---
SHOWER Pt showered,tolerated well.Staff report pt had 4 bowel movement thru the night.Pt c/o swelling to his scrotal area.Sundar feet and hands with edema.Ivf saline locked for now and will pass on report to am nurse.
[2020-06-17 07:24] LABS: HEMATOCRIT 32.2 % (42-54); MEAN CORPUSCULAR HEMOGLOBIN 30.3 pg (27.0-33.0); MEAN CORPUSCULAR HGB CONC 32.6 g/dL (32.0-36.0); MEAN CORPUSCULAR VOLUME 93.1 fL (79-99); RED BLOOD CELL COUNT(AUTO) 3.46 MIL/uL (4.50-6.20); WHITE BLOOD COUNT (AUTO) 15.7 K/uL (4.8-10.8)
[2020-06-17 07:45] VITALS: BP 175/88
[2020-06-17] MEDS: FAMOTIDINE/PF 20 MG/2 ML VIAL IV SCH ×2 (07:47→20:21)
[2020-06-17] MEDS: ENOXAPARIN SODIUM 40 MG/0.4 ML SYRINGE SQ SCH ×2 (07:49→20:21)
[2020-06-17 07:52] LABS: CREATININE 0.7 mg/dL (0.5-1.5); POTASSIUM 4.3 mmol/L (3.5-5.1)
--- NOTE | 2020-06-17 08:00 | NUR ---
ASSIT UP IN THE CHAIR, ASSESS HIS ABD INCISIONAL SITE CLEAN,, ACTIVE BOWEL SOUNDS. AND CALL LIGHT IN REACH.
--- NOTE | 2020-06-17 09:20 | NUR ---
TOLERATE DIET WITH NAUSEA , NO C/O OF ABD PAIN
[2020-06-17 11:00] VITALS: BP 108/60
[2020-06-17] MEDS: HYDRALAZINE HCL 20 MG/ML VIAL IV PRN (12:04)
[2020-06-17 16:00] VITALS: BP 123/65
--- NOTE | 2020-06-17 18:00 | NUR ---
RESTING IN BED , DENIES ANY DISCOMFORT . AND CALL LIGHT IN REACH..
[2020-06-17 20:00] VITALS: BP 153/71
--- NOTE | 2020-06-17 22:00 | NUR ---
SHOWERED Pt took a shower,jess well.Ambulates slowly with a walker.
[2020-06-18] VITALS: BP 144/69
[2020-06-18] MEDS: TRAMADOL /APAP 37.5MG/325MG TAB PO PRN ×2 (00:24→18:49)
[2020-06-18 04:00] VITALS: BP 146/69
[2020-06-18] MEDS: METOCLOPRAMIDE 10 MG/2 ML VIAL IVP SCH ×2 (05:25→12:05)
[2020-06-18 08:00] VITALS: BP 159/83
--- NOTE | 2020-06-18 08:00 | NUR ---
PT SITTING IN THE CHAIR, REVIEW PLAN OF CARE. DENIES ANY A BD PAIN. ASSESS INCISIONAL SITE, CLEAN , ABD BINDER ON. CALL LIGHT IN REACH ,, STATED THAT THE FOOD HE GET .IS VERY GOOD. ABD WITH ACTIVE BOWEL SOUNDS.
[2020-06-18] MEDS: FAMOTIDINE/PF 20 MG/2 ML VIAL IV SCH ×2 (08:20→19:17)
[2020-06-18] MEDS: ENOXAPARIN SODIUM 40 MG/0.4 ML SYRINGE SQ SCH ×2 (08:21→19:17)
[2020-06-18 12:00] VITALS: BP 161/77
--- NOTE | 2020-06-18 12:13 | NUR ---
CM Note: [facility] pending approval CM spoke to pt discussed MD recommendation for short term rehab, pt is agreeable, telephone consent obtained PARMINDER for [facility], witnessed by Glendy GUZMAN. Pt requested to have brother Hood updated. CM called Hood Torres updated w/POC, agreeable for short term placement, telephone consent obtained for [facility], witnessed by Glendy GUZMAN. Faxed order, clinicals, PT, PASRR to [facility], confirmation received. Spoke to Alice, will submit for auth, aware pending covid rapid ordered today and covid transfer form to be signed by MD/ELECTRIC TRACK SWITCH MAINTAINER, will send once available. Pt pending approval. Safe to transfer via [facility] transport van once ready to DC. Primary nurse aware. CM to cont to follow up.
[2020-06-18] MEDS: METRONIDAZOLE 500 MG TABLET PO SCH ×2 (14:11→19:17)
[2020-06-18] MEDS: LEVOFLOXACIN 500 MG TABLET PO SCH (14:11)
[2020-06-18 16:00] VITALS: BP 163/81
[2020-06-18 20:00] VITALS: BP 165/79
[2020-06-19 00:12] VITALS: BP 167/83
[2020-06-19] MEDS: HYDRALAZINE HCL 20 MG/ML VIAL IV PRN (03:19)
[2020-06-19] MEDS: TRAMADOL /APAP 37.5MG/325MG TAB PO PRN (03:19)
[2020-06-19] MEDS: METRONIDAZOLE 500 MG TABLET PO SCH ×2 (03:19→14:32)
[2020-06-19 04:12] VITALS: BP 137/67
[2020-06-19 04:42] LABS: BASOPHILS % (AUTO) 0.5 % (0.0-5.0); EOSINOPHILS % (AUTO) 0.1 % (0.0-8.0); HEMATOCRIT 28.5 % (42-54); LYMPHOCYTES % (AUTO) 6.2 % (21.0-51.0); MEAN CORPUSCULAR HEMOGLOBIN 30.3 pg (27.0-33.0); MEAN CORPUSCULAR HGB CONC 33.3 g/dL (32.0-36.0); MEAN CORPUSCULAR VOLUME 90.8 fL (79-99); MONOCYTES % (AUTO) 5.4 % (3.0-13.0); PLATELET COUNT (AUTO) 224 K/uL (130-400); RED BLOOD CELL COUNT(AUTO) 3.14 MIL/uL (4.50-6.20); RED CELL DISTRIBUTION WIDTH 14.1 % (11.0-15.5); WHITE BLOOD COUNT (AUTO) 10.9 K/uL (4.8-10.8)
[2020-06-19 05:00] LABS: CREATININE 0.5 mg/dL (0.5-1.5); MAGNESIUM 1.9 mg/dL (1.80-2.40)
[2020-06-19 05:03] LABS: POTASSIUM 2.7 mmol/L (3.5-5.1)
[2020-06-19] MEDS: LIDOCAINE HCL-MPF 1% 2ML VIAL IV PRN (05:26)
[2020-06-19] MEDS: POTASSIUM CHLORIDE 20MEQ/100ML 100 ML IV PRN ×2 (05:26→11:58)
[2020-06-19] MEDS: POTASSIUM CHLORIDE 20 MEQ ERTAB PO PRN (05:26)
[2020-06-19 09:48] VITALS: BP 154/77
[2020-06-19] MEDS: LEVOFLOXACIN 500 MG TABLET PO SCH (09:55)
[2020-06-19] MEDS: FAMOTIDINE/PF 20 MG/2 ML VIAL IV SCH (09:55)
[2020-06-19] MEDS: ENOXAPARIN SODIUM 40 MG/0.4 ML SYRINGE SQ SCH (09:56)
[2020-06-19] MEDS: POTASSIUM CHLORIDE 10% ELIXIR 20 MEQ/15 ML UDCUP PO PRN ×4 (10:28→11:57)
[2020-06-19] MEDS: KETOROLAC TROMETHAMINE 15MG/ML IV PRN ×2 (11:32→19:19)
[2020-06-19] MEDS: LIDOCAINE HCL-MPF 1% 2ML VIAL IJ PRN (11:59)
--- NOTE | 2020-06-19 12:04 | NUR ---
CM Note: [facility] pending approval CM spoke to Alice, received rapid neg covid result and transfer form. Pt pending approval at this time. Primary nurse aware. CM to cont to follow up.
[2020-06-19 12:21] VITALS: BP 145/77
[2020-06-19] MEDS ORDERED: SODIUM CHLORIDE 0.9% 500ML 500 ML IV ONE (13:23)
--- NOTE | 2020-06-19 16:07 | NUR ---
CM Note: [facility] approval CM spoke to Abi. Pt has approval. Safe to transfer via [facility] transport van. PATRICK CUSTOMER SERVICE AND SALES CONSULTANT made aware, DC order entered. As per CUSTOMER SERVICE AND SALES CONSULTANT DC Lovenox, continue flagyl and levaquin for 5 more days, f/u w/surgeon 1 week. Primary nurse aware, to give report to [facility] once pt ready to DC. CM to cont to follow up.
[2020-06-19 16:56] VITALS: BP 163/95
--- NOTE | 2020-06-19 17:08 | NUR ---
CM note: EMS arranged CM spoke to Alice Decker, verbalized transport coordinator gone for today. EMS arranged and faxed for today, primary nurse to call [facility] once pt ready to DC. Primary nurse aware. CM to cont to follow up.
--- NOTE | 2020-06-19 17:13 | NUR ---
DARYL INGRAM CALLED DARYL INGRAM, WAITING RF MANAGER BACK FOR D/C ORDERS. PT POTASSIUM WAS 2.7 AND WAS COVERED PER PROTOCOL. ORDER FOR LAB DRAW ORDERED PER HOSPITALIST, WAITING ON RESULTS.
--- NOTE | 2020-06-19 19:48 | NUR ---
NAYE SPOKE TO GALI RENTERIA LVN AND GAVE REPORT, PT. A/A X 3, VS STABLE, INCISION INTACT
[2020-06-19 19:51] VITALS: BP 178/91
--- NOTE | 2020-06-19 23:35 | NUR ---
DISCHARGE NOTE: PT ALERT AND VERY RESPONSIVE. WAS SO HAPPY WHEN EMS STAFF ARRIVED. ABLE TO AMB WITH WALKER WITH MILD ASSISTANCE. JOSUÉ INTACT TO ABDOMEN. CLEAN AND DRY. NURSE TO NURSE REPORT GIVEN BY DAY SHIFT RN. PT SENT TO [facility]IA EMS. NO APPARENT DISTRESS OR DISCOMFORT NOTED. LATEST POTASSIUM RESULT IS 3.7. PIV SITES TERMINATED WITH CATH INTACT.
== END 2020-06-19 23:35 | DRG 329 ==
LOC: EDH 09:28 → EDHIP 13:52 → OBSVTOIN 13:52 → 3CH 17:01
PROVIDERS: ADMIT Internal Medicine Critical Care Medicine; ATTEND Internal Medicine Critical Care Medicine
PROC: 0DTF0ZZ Resection of Right Large Intestine, Open Approach (ICD-10-PCS; principal; 2020-06-08 10:15)
DX: K56.609 Unspecified intestinal obstruction, unspecified as to partial versus complete obstruction (principal); E43 Unspecified severe protein-calorie malnutrition; E87.1 Hypo-osmolality and hyponatremia; J98.11 Atelectasis; K63.89 Other specified diseases of intestine; B99.8 Other infectious disease; N28.1 Cyst of kidney, acquired; I10 Essential (primary) hypertension; E78.00 Pure hypercholesterolemia, unspecified; K76.89 Other specified diseases of liver; D72.829 Elevated white blood cell count, unspecified; E78.5 Hyperlipidemia, unspecified; K56.7 Ileus, unspecified; T40.605A Adverse effect of unspecified narcotics, initial encounter; Y92.89 Other specified places as the place of occurrence of the external cause; E87.8 Other disorders of electrolyte and fluid balance, not elsewhere classified; Z68.21 Body mass index [BMI] 21.0-21.9, adult; Z20.828 Contact with and (suspected) exposure to other viral communicable diseases
CPT/HCPCS: 36415; 36600; 71045; 71046; 74018; 74176; 74178; 80048; 80053; 81001; 82435; 82550; 82803; 82947; 82948; 83605; 83690; 83735; 84100; 84132; 84145; 84295; 84484; 85018; 85025; 85027; 85610; 85730; 87088; 87426; 88309; 90732; 93005; 94760; 97039; A4344; C9113; G0378; J0360; J1100; J1650; J1885; J2001; J2175; J2212; J2250; J2270; J2405; J2543; J2704; J2710; J2765; J3010; J3480; J3490; J7030; J7040; Q9967; U0003